=== PATIENT | female | born 1955 | race Caucasian/White ===

== ENCOUNTER → 2021-08-26 | Outpatient (CLI) | payer OTHER ==
[~2021-08-26] MED LIST: CRESTOR20 M1 PO; GABAPENTIN600 MG PO; METFORMIN1000 MG PO; ZESTRIL20 MG PO
== END | disposition home or self-care (01) ==
LOC: MAMMO 11:00
PROVIDERS: ATTEND Family Medicine
DX: Z12.31 Encounter for screening mammogram for malignant neoplasm of breast (principal); N64.89 Other specified disorders of breast

== ENCOUNTER → 2022-10-13 | Day surgery (SDC) | payer OTHER ==
[~2022-10-13] VITALS: Ht 160 cm; Wt 104.3 kg
[~2022-10-13] MED LIST changes: +LEVEMIR100 UNIT/1 SQ; +OZEMPIC0.25 MG/01 SQ
[2022-10-13 07:29] VITALS: BP 129/64
[2022-10-13 08:08] VITALS: BP 102/40
[2022-10-13 08:38] VITALS: BP 114/68
== END | disposition home or self-care (01) ==
LOC: SDC 10-09 11:00
PROVIDERS: ATTEND Surgery
DX: Z12.11 Encounter for screening for malignant neoplasm of colon (principal); K57.30 Diverticulosis of large intestine without perforation or abscess without bleeding; Z86.010 Personal history of colon polyps; E11.40 Type 2 diabetes mellitus with diabetic neuropathy, unspecified; E78.00 Pure hypercholesterolemia, unspecified; Z79.899 Other long term (current) drug therapy; F17.210 Nicotine dependence, cigarettes, uncomplicated; Z98.890 Other specified postprocedural states

== ENCOUNTER → 2022-10-27 | Outpatient (CLI) | payer OTHER | END | disposition home or self-care (01) | LOC: CARD 02:03 | PROVIDERS: ATTEND Occupational Therapist | DX: R01.1 Cardiac murmur, unspecified (principal) ==

== ENCOUNTER → 2023-01-29 | Outpatient (CLI) | payer OTHER | END | disposition home or self-care (01) | LOC: RAD 13:36 | PROVIDERS: ATTEND Family Medicine | DX: M25.752 Osteophyte, left hip (principal); M25.751 Osteophyte, right hip; M81.0 Age-related osteoporosis without current pathological fracture; I70.0 Atherosclerosis of aorta ==

== ENCOUNTER → 2023-02-13 | Outpatient (CLI) | payer OTHER | END | disposition home or self-care (01) | LOC: RAD 13:58 | PROVIDERS: ATTEND Family Medicine | DX: M85.9 Disorder of bone density and structure, unspecified (principal); M25.559 Pain in unspecified hip; Z78.0 Asymptomatic menopausal state ==

== ENCOUNTER → 2023-07-02 | Outpatient (CLI) | payer OTHER | END | disposition home or self-care (01) | LOC: US 12:08 | PROVIDERS: ATTEND Family Medicine | DX: I70.213 Atherosclerosis of native arteries of extremities with intermittent claudication, bilateral legs (principal); E11.59 Type 2 diabetes mellitus with other circulatory complications; I10 Essential (primary) hypertension; Z72.0 Tobacco use ==

== ENCOUNTER 2024-05-05 10:44 | Emergency (ER) | payer OTHER ==
[~2024-05-05] VITALS: Wt 112.0 kg
[2024-05-05] MEDS ORDERED: SODIUM CHLORIDE 0.9% 1,000 ML IV ONE (11:00)
[2024-05-05] MEDS ORDERED: HYDROmorphONE Hydrochloride 1 MG/ML SYR IV ONE ×2 (11:00→16:15)
[2024-05-05] MEDS ORDERED: Ondansetron Hydrochloride 4 MG/2 ML VIAL IV ONE (11:00)
[2024-05-05 11:24] LABS: HEMATOCRIT 29.1 % (37.0-47.0); MEAN CELL VOLUME 81.5 fl (81.0-99.0); MEAN CORPUSCULAR HGB 25.2 pg (27.0-31.0); MEAN CORPUSCULAR HGB CONC 30.9 g/dl (33.0-37.0); MEAN PLATELET VOLUME 8.5 fl (9.6-12.3); NUCLEATED RED BLOOD CELL 0.2 % (0.0-0.0); PLATELET COUNT AUTOMATED 699 10*3/uL (130-400); RED BLOOD COUNT 3.57 10*6/uL (4.10-5.10); RED CELL DISTRI WIDTH 16.3 % (0-14.5); WHITE BLOOD COUNT 9.5 10*3/uL (4.8-10.8)
[2024-05-05 11:25] LABS: MANUAL DIFF REFLEX YES
[2024-05-05 11:33] LABS: BUN 23 mg/dl (9-23); CHLORIDE 103 mmol/L (98-107); POTASSIUM 4.7 mmol/L (3.4-5.1)
[2024-05-05 11:38] LABS: ATYPICAL LYMPHS 3 % (0-0); BASOPHILS 1 % (0-1); OVALOCYTES FEW; PLATELET SUFFICIENCY HIGH (NORMAL); POLYCHROMASIA SLIGHT; TOTAL CELLS COUNTED 100 #CELLS
[2024-05-05] MEDS ORDERED: Vancomycin Hydrochloride 250 ML IV ONE (12:35)
[2024-05-05] MEDS ORDERED: Piperacillin Sodium/Tazobact 50 ML IV ONE (12:40)
== END 2024-05-05 19:28 | disposition short-term general hospital (02) ==
LOC: ED 10:44
PROVIDERS: Emergency Medicine
DX: M54.50 Low back pain, unspecified (principal); T81.30XD Disruption of wound, unspecified, subsequent encounter; I10 Essential (primary) hypertension; E78.5 Hyperlipidemia, unspecified; E78.00 Pure hypercholesterolemia, unspecified; E11.40 Type 2 diabetes mellitus with diabetic neuropathy, unspecified; R32 Unspecified urinary incontinence; Z88.5 Allergy status to narcotic agent; Z90.49 Acquired absence of other specified parts of digestive tract; Y83.8 Other surgical procedures as the cause of abnormal reaction of the patient, or of later complication, without mention of misadventure at the time of the procedure

== ENCOUNTER 2024-06-27 14:13 | Emergency (ER) | payer OTHER ==
[~2024-06-27] VITALS: Ht 172.7 cm; Wt 102.1 kg
[2024-06-27] MEDS ORDERED: IOHEXOL 300 MG/ML 100 ML VIAL IV ONE (14:45)
[2024-06-27 14:59] LABS: BASO % 0.4 % (0.0-1.0); EOS # 0.3 10*3/uL (0.0-0.4); EOS % 2.9 % (1.0-4.0); HEMATOCRIT 31.1 % (37.0-47.0); MEAN CELL VOLUME 75.9 fl (81.0-99.0); MEAN CORPUSCULAR HGB 21.5 pg (27.0-31.0); MEAN CORPUSCULAR HGB CONC 28.3 g/dl (33.0-37.0); MEAN PLATELET VOLUME 8.3 fl (9.6-12.3); MONO # 0.6 10*3/uL (0.1-1.0); MONO % 6.7 % (3.0-9.0); NEUT # 7.4 10*3/uL (2.3-7.9); PLATELET COUNT AUTOMATED 397 10*3/uL (130-400); RED CELL DISTRI WIDTH 17.3 % (0-14.5); WHITE BLOOD COUNT 9.4 10*3/uL (4.8-10.8)
[2024-06-27 15:29] LABS: ALKALINE PHOSPHATASE 159 U/L (46-116); BUN 12 mg/dl (9-23); CHLORIDE 101 mmol/L (98-107); POTASSIUM 3.9 mmol/L (3.4-5.1); SGPT/ALT 10 U/L (5-49); TOTAL PROTEIN 6.3 gm/dL (6.0-8.0)
[2024-06-27] MEDS ORDERED: TOPROL XL25 MG PO (18:29)
[2024-06-27] MEDS ORDERED: [UNRECOGNIZED DRUG - OTHER] IV (18:29)
[2024-06-27] MEDS ORDERED: OXYCODONE-ACET1 EAC3 PO (18:30)
[2024-06-27] MEDS ORDERED: ATORVASTATIN CA80 M1 PO (18:31)
[2024-06-27] MEDS ORDERED: CLOPIDOGREL75 MG PO (18:31)
[2024-06-27] MEDS ORDERED: Acetaminophen/Oxycodone 5 MG/325 MG TABLET PO PRN (19:35)
[2024-06-28] MEDS ORDERED: HYDROmorphONE Hydrochloride 0.5 MG/0.5 ML SYRINGE IV ONE (00:30)
== END 2024-06-28 01:02 | disposition short-term general hospital (02) ==
LOC: ED 14:13
PROVIDERS: Emergency Medicine
DX: M54.50 Low back pain, unspecified (principal); M25.551 Pain in right hip; Z48.1 Encounter for planned postprocedural wound closure; I10 Essential (primary) hypertension; E11.40 Type 2 diabetes mellitus with diabetic neuropathy, unspecified; E78.00 Pure hypercholesterolemia, unspecified; F17.200 Nicotine dependence, unspecified, uncomplicated; Z90.49 Acquired absence of other specified parts of digestive tract

== ENCOUNTER → 2024-10-29 | Outpatient (CLI) | payer OTHER ==
[~2024-10-29] MED LIST changes: +ATORVASTATIN CA80 M1 PO; +CLOPIDOGREL75 MG PO; +OXYCODONE-ACET1 EAC3 PO; +TOPROL XL25 MG PO; +[UNRECOGNIZED DRUG - OTHER] IV
== END | disposition home or self-care (01) ==
LOC: US 10-13 16:00
PROVIDERS: ATTEND Family Medicine
DX: R60.0 Localized edema (principal); M25.551 Pain in right hip

== ENCOUNTER 2025-01-22 12:38 | Emergency (ER) | payer OTHER ==
[~2025-01-22] VITALS: Ht 160 cm; Wt 97.5 kg
[2025-01-22] MEDS ORDERED: SODIUM CHLORIDE 0.9% 100 ML BAG IV ONE (13:05)
[2025-01-22] MEDS ORDERED: IOHEXOL 350 MG/ML 100 ML VIAL IV ONE (13:05)
[2025-01-22 13:20] LABS: BASO # 0.0 10*3/uL (0.0-0.1); BASO % 0.5 % (0.0-1.0); EOS # 0.1 10*3/uL (0.0-0.4); EOS % 1.7 % (1.0-4.0); MEAN CELL VOLUME 79.4 fl (81.0-99.0); MEAN CORPUSCULAR HGB 24.1 pg (27.0-31.0); MEAN PLATELET VOLUME 9.4 fl (9.6-12.3); MONO # 0.5 10*3/uL (0.1-1.0); MONO % 6.6 % (3.0-9.0); NEUT # 5.7 10*3/uL (2.3-7.9); NEUT % 73.4 % (47.0-73.0); NUCLEATED RED BLOOD CELL 0.0 % (0.0-0.0); NUCLEATED RED BLOOD CELL 0.0 10*3/uL (0.0-0.0); PLATELET COUNT AUTOMATED 272 10*3/uL (130-400); RED CELL DISTRI WIDTH 17.8 % (0-14.5)
[2025-01-22 13:31] LABS: ACT PARTIAL THROMBO TIME 27.6 SECONDS (20.0-32.1)
[2025-01-22 13:37] LABS: BUN 29 mg/dl (9-23)
== END 2025-01-22 15:56 | disposition home or self-care (01) ==
LOC: ED 12:38
PROVIDERS: Emergency Medicine
DX: S90.31XA Contusion of right foot, initial encounter (principal); S90.32XA Contusion of left foot, initial encounter; S60.222A Contusion of left hand, initial encounter; S60.221A Contusion of right hand, initial encounter; X58.XXXA Exposure to other specified factors, initial encounter; Y93.89 Activity, other specified; Y92.89 Other specified places as the place of occurrence of the external cause; Y99.8 Other external cause status